=== PATIENT | male | born 1935 | race Caucasian/White ===

== ENCOUNTER 2023-11-21 11:44 | Emergency (ER) | payer OTHER, SELFPAY ==
[2023-11-21] VITALS (17 sets, daily range): BP systolic 88–141; BP diastolic 50–76; PULSE 66–90; RESP 16–24; TEMP 36.4; O2SAT 93–100; BMI 36.0
--- NOTE | 2023-11-21 12:03 | DI.RAD.S_ITS ---
PROCEDURE: XR CHEST 1V INDICATIONS: altered mental status TECHNIQUE: One view of the chest was acquired. COMPARISON: None. FINDINGS: Surgical changes and devices: None. Lungs and pleura: Lungs are clear. No pleural effusions or pneumothorax. Mediastinum: Mediastinal contours appear normal. Heart size is normal. Bones and chest wall: No suspicious bony lesions. Overlying soft tissues appear unremarkable. Old healed right clavicular fracture deformity. IMPRESSION: No acute cardiopulmonary abnormality is seen. Approved by: Ye Harrell M.D. on 11/21/2023 at 13:29
--- NOTE | 2023-11-21 12:10 | ED.GENADULT ---
HPI - General Adult General Chief complaint: Fall Stated complaint: Fall,AMS Time Seen by Provider: 11/21/23 11:54 Source: patient and EMS Mode of arrival: EMS Limitations: altered mental status History of Present Illness HPI narrative: Patient is an 88-year-old male. He is confused. Is unable to provide any HPI. Arrived by EMS. He was unsure as to who called EMS. He was unsure as to what happened to him today. He was abrasions on his forehead. He reports no pain. He knows that he was in the hospital and his date but is unable to provide any other HPI. Related Data Allergies Allergy/AdvReac Type Severity Reaction Status Date / Time No Known Drug Allergies Allergy Unverified 10/28/22 09:16 Review of Systems Review of Systems ROS Unobtainable: Unobtainable due to mental condition Patient History Social History Smoking Status: Unknown if ever smoked Smoking Status: Unknown if ever smoked Exam Initial Vital Signs Initial Vital Signs: Vital Signs Pulse Rate 87 11/21/23 11:51 Respiratory Rate 16 11/21/23 11:51 Pulse Oximetry 94 11/21/23 11:51 Const General: comfortable and No ill appearing HENMT Head: abrasion and contusion Chest Chest: No crepitus and No tenderness Resp Effort & Inspection: normal respiratory effort Auscultation: clear to auscultation bilaterally Cardio Rate: regular rate Rhythm: regular rhythm GI Inspection: normal to inspection Skin Other: Superficial abrasions to forehead Neuro General: patient alert, patient awake and moves all extremities Speech: speech normal Extrem Other: No gross deformities. Pelvis is stable. It went move all 4 extremities equally. Course Orders Ordered: ED Orders 11/21/23 11:30 CK [Creatine Kinase] Stat Complete Blood Count AUTO DIFF Stat Comprehensive Metabolic Panel Stat Ethanol (ETOH) Stat Prolactin Stat 11/21/23 12:00 Ammonia (NH3) Stat Urinalysis and Microscopic Stat Urine Culture Stat Urine Drug Screen, Rapid Stat 11/21/23 12:03 XR chest 1V Stat EKG-12 Lead Stat 11/21/23 12:09 CT cervical spine wo con Stat CT head/brain wo con Stat Discontinued Medications Bacitracin (Bacitracin Oint 0.9 Gm Pckt) 1 applic TOP NOW ONE Stop: 11/21/23 15:27 Last Admin: 11/21/23 15:33 Dose: 1 applic Documented By: SAVAGE Sodium Chloride (Normal Saline 0.9%) 1,000 mls @ 1,000 mls/hr IV BOLUS ONE Stop: 11/21/23 13:36 Last Infusion: 11/21/23 13:46 Dose: Infused Documented By: Admin: 11/21/23 12:49 Dose: 1,000 mls/hr Documented By: SAVAGE Vital Signs Vital signs: Vital Signs - 8 hr 11/21/23 11:51 11/21/23 11:52 11/21/23 11:52 Temperature Pulse Rate 87 90 Respiratory Rate 16 21 Blood Pressure 96/51 L Pulse Oximetry 94 95 Oxygen Delivery Method 11/21/23 12:00 11/21/23 12:00 11/21/23 12:03 Temperature 97.6 F Pulse Rate 83 87 Respiratory Rate 24 16 Blood Pressure 88/53 L 106/59 L Pulse Oximetry 93 95 Oxygen Delivery Method Room Air 11/21/23 12:03 11/21/23 12:03 11/21/23 12:15 Temperature Pulse Rate 85 83 Respiratory Rate 19 16 Blood Pressure 98/50 L Pulse Oximetry 95 95 Oxygen Delivery Method 11/21/23 12:15 11/21/23 12:46 11/21/23 12:50 Temperature Pulse Rate 77 76 Respiratory Rate 18 Blood Pressure 98/53 L Pulse Oximetry 96 Oxygen Delivery Method 11/21/23 12:50 11/21/23 13:00 11/21/23 13:00 Temperature Pulse Rate 75 Respiratory Rate 20 Blood Pressure 118/56 L 115/57 L Pulse Oximetry 98 Oxygen Delivery Method 11/21/23 13:15 11/21/23 13:15 11/21/23 13:30 Temperature Pulse Rate 69 70 Respiratory Rate 18 19 Blood Pressure 117/62 Pulse Oximetry 96 98 Oxygen Delivery Method 11/21/23 13:30 11/21/23 13:45 11/21/23 13:45 Temperature Pulse Rate 67 Respiratory Rate 18 Blood Pressure 118/61 121/63 Pulse Oximetry 98 Oxygen Delivery Method 11/21/23 14:00 11/21/23 14:00 11/21/23 14:15 Temperature Pulse Rate 66 Respiratory Rate 18 Blood Pressure 123/65 127/63 Pulse Oximetry 98 Oxygen Delivery Method 11/21/23 14:15 11/21/23 14:30 11/21/23 14:30 Temperature Pulse Rate 66 70 Respiratory Rate 17 17 Blood Pressure 131/64 Pulse Oximetry 98 99 Oxygen Delivery Method 11/21/23 14:48 11/21/23 14:48 11/21/23 15:00 Temperature Pulse Rate 79 70 Respiratory Rate Blood Pressure 141/76 H Pulse Oximetry 99 100 Oxygen Delivery Method 11/21/23 15:00 11/21/23 15:15 11/21/23 15:15 Temperature Pulse Rate 67 Respiratory Rate Blood Pressure 139/67 133/69 Pulse Oximetry 99 Oxygen Delivery Method Medical Decision Making Lab Data Lab results reviewed: Yes I reviewed the patient's lab results. 11/21/23 11:30 11/21/23 11:30 Labs: Lab Results 11/21/23 11/21/23 11/21/23 Range/Units 11:30 12:00 12:00 WBC 9.8 (4.5-11.0) X10^3/uL RBC 3.35 L (4.5-5.9) X10^6/uL Hgb 10.5 L (13.5-17.5) g/dL Hct 32.1 L (41-53) % MCV 95.9 (80-100) fL MCH 31.4 (26-34) PG MCHC 32.8 (30-36) % RDW 14.3 (11.6-14.8) % Plt Count 252 (150-400) X10^3/uL Neut % (Auto) 75.3 H (50-75) % Lymph % (Auto) 15.5 L (25-40) % [place] % (Auto) 8.2 (3-14) % Eos % (Auto) 0.6 L (2-4) % Baso % (Auto) 0.4 (0-2) % Neut # (Auto) 7400 H (3753-2989) /uL Lymph # (Auto) 1500 (5166-2383) /uL [place] # (Auto) 800 (0-900) /uL Eos # (Auto) 100 (0-450) /uL Baso # (Auto) 0 (0-100) /uL Sodium 143 (137-145) mmol/L Potassium 3.8 (3.4-5.1) mmol/L Chloride 108 H (98-107) mmol/L Carbon Dioxide 15 L (22-32) mmol/L BUN 41 H (9-20) mg/dL Creatinine 2.02 H (0.66-1.25) mg/dL Estimated GFR 32 L (>60) mL/min BUN/Creatinine Ratio 20.3 (6-22) Glucose 203 H (80-110) mg/dL Calcium 9.3 (8.4-10.2) mg/dL Total Bilirubin 0.4 (0.2-1.3) mg/dL AST 32 (17-59) IU/L ALT 27 (<50) IU/L Alkaline Phosphatase 35 L (38-126) U/L Ammonia < 9 L (9-30) umol/L Total Creatine Kinase 194 H (55-170) U/L Total Protein 7.0 (6.3-8.2) g/dL Albumin 4.3 (3.5-5.0) g/dL Globulin 2.7 (1.7-4.1) g/dL Albumin/Globulin Ratio 1.6 (1.0-2.8) Prolactin 41.9 H (3.7-17.9) ng/mL Urine Color Yellow Urine Appearance Slightly cloudy Urine pH 5.5 (4.5-8.0) Ur Specific [place] >=1.030 H (1.000-1.035) Urine Protein Negative (Negative) Urine Glucose (UA) Negative (Negative) g/dL Urine Ketones Negative (NEGATIVE) Urine Occult Blood Negative (Negative) Urine Nitrate Negative (Negative) Urine Bilirubin Negative (NEGATIVE) Urine Urobilinogen 0.2 (0.2) E.U./dL Ur Leukocyte Esterase 2+ H (NEGATIVE) Urine RBC Cancelled None seen Urine WBC Cancelled Ur Squamous Epith Cells Ur Transition Epith Cell Ur Renal Epithelial Cell Calcium Oxalate Crystal Uric Acid Crystals Triple Phos Crystals Other Crystals Amorphous Sediment Urine Bacteria Hyaline Casts Granular Casts RBC Casts WBC Casts Other Casts Urine Mucus Urine Trichomonas Urine Yeast Urine Sperm Ur Culture Indicated? Micro UA Comment Vol Urine Centrifuged U Opiates 300ng/mL cut (Negative) Ur Oxycodone Screen (Negative) Urine Methadone Screen (Negative) Ur Barbiturates Screen (Negative) U Tricyclic Antidepress (Negative) Ur Phencyclidine Scrn (Negative) Ur Amphetamines Screen (Negative) U Methamphetamines Scrn (Negative) Ur MDMA Scrn (Ecstasy) (Negative) U Benzodiazepines Scrn (Negative) Urine Cocaine Screen (Negative) U Marijuana (THC) Screen (Negative) Urine Specific [place] (Normal) Ethyl Alcohol < 10 ( - 10) mg/dL Ur Creatinine (Normal) 11/21/23 11/21/23 11/21/23 Range/Units 12:00 12:00 12:00 WBC (4.5-11.0) X10^3/uL RBC (4.5-5.9) X10^6/uL Hgb (13.5-17.5) g/dL Hct (41-53) % MCV (80-100) fL MCH (26-34) PG MCHC (30-36) % RDW (11.6-14.8) % Plt Count (150-400) X10^3/uL Neut % (Auto) (50-75) % Lymph % (Auto) (25-40) % [place] % (Auto) (3-14) % Eos % (Auto) (2-4) % Baso % (Auto) (0-2) % Neut # (Auto) (8208-1313) /uL Lymph # (Auto) (3037-3639) /uL [place] # (Auto) (0-900) /uL Eos # (Auto) (0-450) /uL Baso # (Auto) (0-100) /uL Sodium (137-145) mmol/L Potassium (3.4-5.1) mmol/L Chloride (98-107) mmol/L Carbon Dioxide (22-32) mmol/L BUN (9-20) mg/dL Creatinine (0.66-1.25) mg/dL Estimated GFR (>60) mL/min BUN/Creatinine Ratio (6-22) Glucose (80-110) mg/dL Calcium (8.4-10.2) mg/dL Total Bilirubin (0.2-1.3) mg/dL AST (17-59) IU/L ALT (<50) IU/L Alkaline Phosphatase (38-126) U/L Ammonia (9-30) umol/L Total Creatine Kinase (55-170) U/L Total Protein (6.3-8.2) g/dL Albumin (3.5-5.0) g/dL Globulin (1.7-4.1) g/dL Albumin/Globulin Ratio (1.0-2.8) Prolactin (3.7-17.9) ng/mL Urine Color Urine Appearance Urine pH (4.5-8.0) Ur Specific [place] (1.000-1.035) Urine Protein (Negative) Urine Glucose (UA) (Negative) g/dL Urine Ketones (NEGATIVE) Urine Occult Blood (Negative) Urine Nitrate (Negative) Urine Bilirubin (NEGATIVE) Urine Urobilinogen (0.2) E.U./dL Ur Leukocyte Esterase (NEGATIVE) Urine RBC Urine WBC 10-30/hpf H Ur Squamous Epith Cells Cancelled None seen Ur Transition Epith Cell Cancelled Ur Renal Epithelial Cell Cancelled Calcium Oxalate Crystal Cancelled Uric Acid Crystals Cancelled Triple Phos Crystals Cancelled Other Crystals Cancelled Amorphous Sediment Cancelled Urine Bacteria Cancelled Many (>30) H Hyaline Casts Cancelled Granular Casts Cancelled RBC Casts Cancelled WBC Casts Cancelled Other Casts Cancelled Urine Mucus Cancelled Urine Trichomonas Cancelled Urine Yeast Cancelled Urine Sperm Cancelled Ur Culture Indicated? Cancelled Micro UA Comment Vol Urine Centrifuged U Opiates 300ng/mL cut (Negative) Ur Oxycodone Screen (Negative) Urine Methadone Screen (Negative) Ur Barbiturates Screen (Negative) U Tricyclic Antidepress (Negative) Ur Phencyclidine Scrn (Negative) Ur Amphetamines Screen (Negative) U Methamphetamines Scrn (Negative) Ur MDMA Scrn (Ecstasy) (Negative) U Benzodiazepines Scrn (Negative) Urine Cocaine Screen (Negative) U Marijuana (THC) Screen (Negative) Urine Specific [place] (Normal) Ethyl Alcohol ( - 10) mg/dL Ur Creatinine (Normal) 11/21/23 11/21/23 Range/Units 12:00 12:00 WBC (4.5-11.0) X10^3/uL RBC (4.5-5.9) X10^6/uL Hgb (13.5-17.5) g/dL Hct (41-53) % MCV (80-100) fL MCH (26-34) PG MCHC (30-36) % RDW (11.6-14.8) % Plt Count (150-400) X10^3/uL Neut % (Auto) (50-75) % Lymph % (Auto) (25-40) % [place] % (Auto) (3-14) % Eos % (Auto) (2-4) % Baso % (Auto) (0-2) % Neut # (Auto) (2597-2384) /uL Lymph # (Auto) (0586-1684) /uL [place] # (Auto) (0-900) /uL Eos # (Auto) (0-450) /uL Baso # (Auto) (0-100) /uL Sodium (137-145) mmol/L Potassium (3.4-5.1) mmol/L Chloride (98-107) mmol/L Carbon Dioxide (22-32) mmol/L BUN (9-20) mg/dL Creatinine (0.66-1.25) mg/dL Estimated GFR (>60) mL/min BUN/Creatinine Ratio (6-22) Glucose (80-110) mg/dL Calcium (8.4-10.2) mg/dL Total Bilirubin (0.2-1.3) mg/dL AST (17-59) IU/L ALT (<50) IU/L Alkaline Phosphatase (38-126) U/L Ammonia (9-30) umol/L Total Creatine Kinase (55-170) U/L Total Protein (6.3-8.2) g/dL Albumin (3.5-5.0) g/dL Globulin (1.7-4.1) g/dL Albumin/Globulin Ratio (1.0-2.8) Prolactin (3.7-17.9) ng/mL Urine Color Urine Appearance Urine pH Normal (4.5-8.0) Ur Specific [place] (1.000-1.035) Urine Protein (Negative) Urine Glucose (UA) (Negative) g/dL Urine Ketones (NEGATIVE) Urine Occult Blood (Negative) Urine Nitrate (Negative) Urine Bilirubin (NEGATIVE) Urine Urobilinogen (0.2) E.U./dL Ur Leukocyte Esterase (NEGATIVE) Urine RBC Urine WBC Ur Squamous Epith Cells Ur Transition Epith Cell Ur Renal Epithelial Cell Calcium Oxalate Crystal Uric Acid Crystals Triple Phos Crystals Other Crystals Amorphous Sediment Urine Bacteria Hyaline Casts Granular Casts RBC Casts WBC Casts Other Casts Urine Mucus Urine Trichomonas Urine Yeast Urine Sperm Ur Culture Indicated? Specimen cultured Micro UA Comment Cancelled Vol Urine Centrifuged Cancelled 10ml (spun) U Opiates 300ng/mL cut Negative (Negative) Ur Oxycodone Screen Negative (Negative) Urine Methadone Screen Negative (Negative) Ur Barbiturates Screen Negative (Negative) U Tricyclic Antidepress Negative (Negative) Ur Phencyclidine Scrn Negative (Negative) Ur Amphetamines Screen Negative (Negative) U Methamphetamines Scrn Negative (Negative) Ur MDMA Scrn (Ecstasy) Negative (Negative) U Benzodiazepines Scrn Negative (Negative) Urine Cocaine Screen Negative (Negative) U Marijuana (THC) Screen Negative (Negative) Urine Specific [place] Normal (Normal) Ethyl Alcohol ( - 10) mg/dL Ur Creatinine Normal (Normal) Point of Care Testing Glucose POC 198 Point of care testing: Point of Care Testing Glucose POC 198 Imaging Data Chest x-ray: Radiologist's Impression: PROCEDURE: XR CHEST 1V INDICATIONS: altered mental status TECHNIQUE: One view of the chest was acquired. COMPARISON: None. FINDINGS: Surgical changes and devices: None. Lungs and pleura: Lungs are clear. No pleural effusions or pneumothorax. Mediastinum: Mediastinal contours appear normal. Heart size is normal. Bones and chest wall: No suspicious bony lesions. Overlying soft tissues appear unremarkable. Old healed right clavicular fracture deformity. IMPRESSION: No acute cardiopulmonary abnormality is seen. CT - cervical spine: Radiologist's Impression: PROCEDURE: CT CERVICAL SPINE WO CON INDICATIONS: fall AMS TECHNIQUE: Noncontrast 3 mm thick sections acquired from the skull base to the T4 level. Sagittal and coronal reformats were then constructed. For radiation dose reduction, the following was used: automated exposure control, adjustment of mA and/or kV according to patient size. COMPARISON: None. FINDINGS: Image quality: Excellent. Bones: No fractures or dislocations. Visualized superior ribs are intact. Old healed right clavicular fracture deformity. Chronic osseous fusion across the C2-3 disc space and partial osseous fusion of C1 and C2. Multilevel disc space narrowing and degenerative endplate changes. Multilevel uncovertebral joint and facet hypertrophy. Soft tissues: Prevertebral soft tissues are normal in thickness. No paravertebral hematomas. No apical pneumothoraces. IMPRESSION: No acute displaced fracture or traumatic subluxation. CT scan - head: Radiologist's Impression: ROCEDURE: CT HEAD/BRAIN WO CON INDICATIONS: AMS TECHNIQUE: Noncontrast 4.5 mm thick angled axial sections acquired from the foramen magnum to the vertex, with coronal and sagittal reformats. For radiation dose reduction, the following was used: automated exposure control, adjustment of mA and/or kV according to patient size. COMPARISON: None. FINDINGS: Image quality: Diagnostic. CSF spaces: Basal cisterns are patent. No extra-axial fluid collections. The ventricles are symmetric in size and shape. Brain: No acute intracranial hemorrhage or mass effect. There is cerebral volume loss for age, with resultant ventricular and sulcal prominence. There are periventricular and deep white matter chronic small vessel ischemic changes. There is intracranial internal carotid artery atherosclerosis. Skull and face: Mild focal midline frontal scalp edema. Calvarium and visualized facial bones appear intact, without suspicious lesions. Sinuses: Visualized sinuses and mastoids are clear. IMPRESSION: 1. No acute intracranial pathology. 2. Mild chronic microvascular ischemic changes and generalized parenchymal volume loss. ECG Data Attestation: I personally reviewed and interpreted this ECG as follows: Interpretation: Sinus rhythm Ventricular rate of 83 First-degree AV block LA interval 246 milliseconds Normal axis Normal QRS Normal QTC No ST T wave changes MDM Narrative Medical decision making narrative: Patient's son-in-law did arrive to the emergency department and stated that the patient is at his baseline neurologic status. He was abrasions to his forehead which require no specific intervention other than cleaning and topical antibiotic ointment. His workup here in the ER is unremarkable. He was never had a history of seizures. Patient's son-in-law states that the patient does have some good days and bad days where he was more confused than others but he feels like how he was acting today and responding to questioning is at his baseline. The patient does live with his son-in-law and daughter. He was able to stand and ambulate at bedside. Since he was at his baseline will discharge home with return precautions. Patient's son-in-law expressed understanding and agreement. Discharge Plan Departure Patient Disposition: Home Clinical Impression: Abrasion of skin of face, Fall Instructions: How to Prevent Falls, DI for Abrasion Activity Restrictions/Additional Instructions: Angel can continue to take all of his medications as directed. He can shower like normal. You can put topical antibiotic ointment over the areas of abrasion on the forehead. Contact his primary doctor for follow-up. Return to the emergency department for new symptoms. Referrals: Miscellaneous,[facility] [Primary Care Provider] - Stand Alone Forms: Patient Portal/API
--- NOTE | 2023-11-21 12:12 | EKG_ITS ---
[address] [address] Test Date: 2023-11-21 Pat Name: Angel Marie Department: 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
[2023-11-21 12:15] LABS: Add Manual Diff / Slide Review NO; Basophils Absolute Auto 0 /uL (0-100); Basophils Percent Auto 0.4 % (0-2); Eosinophils Absolute Auto 100 /uL (0-450); Eosinophils Percent Auto 0.6 % (2-4); Hematocrit 32.1 % (41-53); Hemoglobin 10.5 g/dL (13.5-17.5); Lymphocytes Absolute Auto 1500 /uL (1100-4500); Lymphocytes Percent Auto 15.5 % (25-40); Mean Corpuscular HGB Conc 32.8 % (30-36); Mean Corpuscular Hemoglobin 31.4 PG (26-34); Mean Corpuscular Volume 95.9 fL (80-100); Monocytes Absolute Auto 800 /uL (0-900); Monocytes Percent Auto 8.2 % (3-14); Neutrophils Absolute Auto 7400 /uL (1500-7000); Neutrophils Percent Auto 75.3 % (50-75); Platelet Count 252 X10^3/uL (150-400); Red Blood Cell Count 3.35 X10^6/uL (4.5-5.9); Red Cell Distribution Width 14.3 % (11.6-14.8); White Blood Cell Count 9.8 X10^3/uL (4.5-11.0)
[2023-11-21 12:18] LABS: Ur Creatinine Normal (Normal); Ur Specific Gravity Normal (Normal); Urine Tetrahydrocannabinol Negative (Negative); Urine pH Normal (Normal)
[2023-11-21 12:19] LABS: UR Morphine/Opiate cutoff 300 Negative (Negative); Urine Amphetamines Negative (Negative); Urine Barbiturates Negative (Negative); Urine Benzodiazepines Negative (Negative); Urine Cocaine Negative (Negative); Urine MDMA Negative (Negative); Urine Methadone Negative (Negative); Urine Methamphetamines Negative (Negative); Urine Oxycodone Negative (Negative); Urine Phencyclidine Negative (Negative); Urine Tricyclic Antidepressant Negative (Negative)
[2023-11-21 12:23] LABS: Bilirubin Urine UA NEGATIVE (NEGATIVE); Color Urine UA YELLOW; Glucose Urine UA NEGATIVE (Negative); Ketones Urine UA NEGATIVE (NEGATIVE); Leukocyte Esterase Urine UA 2+ (NEGATIVE); Nitrite Urine UA NEGATIVE (Negative); Occult Blood Urine UA NEGATIVE (Negative); Protein Urine UA NEGATIVE (Negative); Specific Gravity Urine UA >=1.030 (1.000-1.035); Urobilinogen Urine UA 0.2 E.U./dL (0.2); pH Urine UA 5.5 (4.5-8.0)
[2023-11-21 12:28] LABS: Appearance Urine UA Slightly Cloudy; RBC Urine None Seen (0-5/HPF); Urine Volume 10mL (spun); WBC Urine 10-30/HPF (0-5/HPF)
[2023-11-21 12:29] LABS: Bacteria Urine Many (>30); Culture Indicated Urine Specimen Cultured; Squamous Epithelial Cell Urine None Seen (0-5/HPF)
[2023-11-21 12:33] LABS: Albumin 4.3 g/dL (3.5-5.0); Albumin Globulin Ratio 1.6 (1.0-2.8); Alkaline Phosphatase 35 U/L (38-126); Aspartate Aminotransferase 32 IU/L (17-59); BUN Creatinine Ratio 20.3 (6-22); Bilirubin Total 0.4 mg/dL (0.2-1.3); Blood Urea Nitrogen 41 mg/dL (9-20); Calcium 9.3 mg/dL (8.4-10.2); Carbon Dioxide 15 mmol/L (22-32); Chloride 108 mmol/L (98-107); Estimated Glomerular Filt Rate 32 mL/min (>60); Globulin 2.7 g/dL (1.7-4.1); Glucose 203 mg/dL (80-110); HEMOLYSIS < 15 (0-50); Potassium 3.8 mmol/L (3.4-5.1); Sodium 143 mmol/L (137-145)
[2023-11-21 12:34] LABS: Ethanol (ETOH) < 10 mg/dL
--- NOTE | 2023-11-21 12:35 | PC.NURSE ---
Pt unable to tell me children's name or information. Attempted to call number listed in chart; no answer. Attempted to contact pt's insurance company through [employer] who was unable to help w/ emergency contact information.
[2023-11-21 12:39] LABS: Alanine Aminotransferase 27 IU/L (<50)
[2023-11-21 12:45] LABS: Ammonia (NH3) < 9 umol/L (9-30)
[2023-11-21 12:47] LABS: Creatine Kinase 194 U/L (55-170)
[2023-11-21] MEDS: SODIUM CHLORIDE 0.9% 1,000 ML 1000 ML IV (12:49)
[2023-11-21 13:04] LABS: Prolactin 41.9 ng/mL (3.7-17.9)
--- NOTE | 2023-11-21 14:49 | PC.NURSE ---
Ambulated to bathroom and used toilet without difficulty.
[2023-11-21] MEDS: BACITRACIN OINT 0.9 GM PCKT 1 APPLIC TOP (15:33)
== END 2023-11-21 15:45 | disposition home or self-care (01) ==
PROVIDERS: Emergency Provider Emergency Medicine
DX: S00.81XA Abrasion of other part of head, initial encounter (principal); I44.0 Atrioventricular block, first degree; R41.82 Altered mental status, unspecified; W19.XXXA Unspecified fall, initial encounter
CPT/HCPCS: 36415; 70450; 71045; 72125; 80053; 80305; 80320; 81001; 82140; 82550; 82962; 84146; 85025; 87077; 87086; 87186; 93005; 96360; 99284; 99285

== ENCOUNTER 2024-06-30 15:02 | Emergency (ER) | payer OTHER, SELFPAY ==
[2024-06-30] VITALS (8 sets, daily range): BP systolic 108–149; BP diastolic 57–75; PULSE 60–67; RESP 14–18; TEMP 36.4–36.8; O2SAT 97–99; BMI 33.9
--- NOTE | 2024-06-30 15:41 | DI.RAD.S_ITS ---
PROCEDURE: XR CHEST 1V INDICATIONS: altered mental status TECHNIQUE: One view of the chest was acquired. COMPARISON: [facility], CR, XR CHEST 1V, 11/21/2023, 12:34. FINDINGS: Surgical changes and devices: None. Lungs and pleura: Lungs are clear. No pleural effusions or pneumothorax. Mediastinum: Mediastinal contours appear normal. Heart size is normal. Bones and chest wall: No suspicious bony lesions. Overlying soft tissues appear unremarkable. IMPRESSION: No acute cardiopulmonary abnormality is seen. Dictated by: Kenrick Mejia M.D. on 06/30/2024 at 16:29 Approved by: Kenrick Mejia M.D. on 06/30/2024 at 16:29
--- NOTE | 2024-06-30 15:41 | EKG_ITS ---
[place] [id number] [place] [id number] Test Date: 2024-06-30 Pat Name: Angel Marie Department: [facility] Room: Gender: Male Combat Engineer: PHILLIP : 1935 Requested By: Order Number: [id number] Reading MD: Eyad Sorenson MD Measurements Intervals [place] Rate: 62 P: 54 TX: 210 QRS: 13 QRSD: 102 T: 58 QT: 414 QTc: 420 Interpretive Statements Sinus rhythm with 1st degree AV block Electronically Signed On 07-01-2024 12:21:42 PST by Eyad Sorenson MD
[2024-06-30 16:03] LABS: Ur Creatinine Normal (Normal); Ur Specific Gravity Normal (Normal); Urine Amphetamines Negative (Negative); Urine Barbiturates Negative (Negative); Urine Benzodiazepines Negative (Negative); Urine Cocaine Negative (Negative); Urine MDMA Negative (Negative); Urine Methadone Negative (Negative); Urine Methamphetamines Negative (Negative); Urine Opiates Negative (Negative); Urine Phencyclidine Negative (Negative); Urine THC Negative (Negative); Urine Tricyclic Antidepressant Negative (Negative); Urine pH Normal (Normal)
[2024-06-30 16:04] LABS: Urine Oxycodone Negative (Negative)
[2024-06-30 16:10] LABS: Add Manual Diff / Slide Review NO; Basophils Absolute Auto 0 /uL (0-100); Basophils Percent Auto 0.3 % (0-2); Eosinophils Absolute Auto 200 /uL (0-450); Eosinophils Percent Auto 2.3 % (2-4); Hematocrit 33.5 % (41-53); Hemoglobin 11.1 g/dL (13.5-17.5); Lymphocytes Absolute Auto 2200 /uL (1100-4500); Lymphocytes Percent Auto 29.3 % (25-40); Mean Corpuscular HGB Conc 33.2 % (30-36); Mean Corpuscular Hemoglobin 31.6 PG (26-34); Mean Corpuscular Volume 95.3 fL (80-100); Monocytes Absolute Auto 800 /uL (0-900); Neutrophils Absolute Auto 4300 /uL (1500-7000); Neutrophils Percent Auto 57.1 % (50-75); Platelet Count 239 X10^3/uL (150-400); Red Blood Cell Count 3.52 X10^6/uL (4.5-5.9); Red Cell Distribution Width 13.6 % (11.6-14.8); White Blood Cell Count 7.6 X10^3/uL (4.5-11.0)
[2024-06-30 16:39] LABS: Alanine Aminotransferase 21 IU/L (<50); Albumin 4.5 g/dL (3.5-5.0); Albumin Globulin Ratio 1.7 (1.0-2.8); Alkaline Phosphatase 32 U/L (38-126); Aspartate Aminotransferase 65 IU/L (17-59); BUN Creatinine Ratio 23.2 (6-22); Bilirubin Total 0.3 mg/dL (0.2-1.3); Blood Urea Nitrogen 44 mg/dL (9-20); Calcium 9.4 mg/dL (8.4-10.2); Carbon Dioxide 23 mmol/L (22-32); Chloride 104 mmol/L (98-107); Estimated Glomerular Filt Rate 34 mL/min (>60); Globulin 2.6 g/dL (1.7-4.1); Glucose 52 mg/dL (80-110); HEMOLYSIS 20 (0-50); Potassium 4.6 mmol/L (3.4-5.1); Sodium 137 mmol/L (137-145); Total Protein 7.1 g/dL (6.3-8.2)
[2024-06-30 16:40] LABS: Ammonia (NH3) 12 umol/L (9-30)
--- NOTE | 2024-06-30 20:24 | PC.NURSE ---
pt given peanut butter and crackers and apple juice
--- NOTE | 2024-06-30 21:41 | PC.NURSE ---
Patient in room alone and no family at bedside. The patient is alert to self but does not know his age, location, month, or situation.
--- NOTE | 2024-06-30 21:42 | PC.NURSE ---
The patient denies pain and does not react when palpating his abd. His pupils PERRLA. He does not appear to be in distress at this time. His lung sounds are clear. He denies cough, , or GI issues.
--- NOTE | 2024-06-30 23:03 | ED.GENADULT ---
HPI - General Adult General Chief complaint: Altered Mental Status Stated complaint: confused, AMS Time Seen by Provider: 06/30/24 22:04 Source: patient Mode of arrival: Ambulatory History of Present Illness HPI narrative: 89-year-old male with history of diabetes diagnosed about 15 years ago, noted to be confused by son-in-law caregiver at their home to the day today, this has happened in the past with urinary tract infections, they brought in for evaluation, found to have low blood sugar 52, given oral feeds, improved status here. No recent fevers. No nausea or vomiting. No abdominal pain. No chest pain or shortness of breath. No recent fall injury trauma or new activities. He seemed to be doing well in his current situation, no requests for fdc placement or other social assistance for now. No recent changes in medication or oral intake. He takes metformin 1000 mg tablets, 2 tablets each morning. Related Data Home Medications Medication Instructions Recorded Confirmed aspirin 81 mg tablet,delayed 81 mg PO DAILY 06/30/24 06/30/24 release atorvastatin 40 mg tablet 40 mg PO DAILY 06/30/24 06/30/24 fenofibrate nanocrystallized 145 145 mg PO DAILY 06/30/24 06/30/24 mg tablet furosemide 20 mg tablet 20 mg PO DAILY 06/30/24 06/30/24 glipizide 10 mg tablet 10 mg PO DAILY 06/30/24 06/30/24 levothyroxine 100 mcg tablet 100 mcg PO DAILY disorder of 06/30/24 06/30/24 thyroid gland lisinopril 10 mg tablet 10 mg PO DAILY blood pressure 06/30/24 06/30/24 metformin 1,000 mg tablet mg 06/30/24 sitagliptin phosphate 100 mg 100 mg PO DAILY 06/30/24 06/30/24 tablet (Januvia) Allergies Allergy/AdvReac Type Severity Reaction Status Date / Time No Known Drug Allergies Allergy Verified 06/30/24 15:38 Patient History Social History Smoking Status: Never smoker Smoking Status: Never smoker Exam Narrative Exam Narrative: GENERAL: Well-developed patient, in mild distress. HEAD: Atraumatic. Normocephalic. EYES: Pupils equal round and reactive. Extraocular motions intact. No scleral icterus. No injection or drainage. ENT: Nose without bleeding, purulent drainage. Throat without erythema, tonsillar hypertrophy or exudate. Airway patent. NECK: Trachea midline. Non tender CARDIOVASCULAR: Regular rate and rhythm without murmurs, gallops, or rubs. RESPIRATORY: Clear to auscultation. Breath sounds equal bilaterally. No wheezes, rales, or rhonchi. GASTROINTESTINAL: Abdomen soft, non-tender, nondistended. EXTREMITIES: No edema or joint tenderness. BACK: Nontender without deformity or crepitance. No flank tenderness. NEURO: AOx3. Motor functions grossly nonfocal. SKIN: No rash or erythema of visible areas Initial Vital Signs Initial Vital Signs: Vital Signs Temperature 98.3 F 06/30/24 15:34 Pulse Rate 61 06/30/24 15:34 Respiratory Rate 17 06/30/24 15:34 Blood Pressure 108/59 L 06/30/24 15:34 Pulse Oximetry 99 06/30/24 15:34 Oxygen Delivery Method Room Air 06/30/24 15:34 Course Orders Ordered: ED Orders 06/30/24 15:41 XR chest 1V Stat EKG-12 Lead Stat 06/30/24 15:50 Urine Drug Screen, Rapid Stat 06/30/24 15:55 Ammonia (NH3) Stat Complete Blood Count AUTO DIFF Stat Comprehensive Metabolic Panel Stat Vital Signs Vital signs: Vital Signs - 8 hr 06/30/24 15:34 06/30/24 17:40 06/30/24 21:07 Temperature 98.3 F Pulse Rate 61 60 63 Respiratory Rate 17 18 Blood Pressure 108/59 L 119/65 Pulse Oximetry 99 98 98 Oxygen Delivery Method Room Air Room Air 06/30/24 21:09 06/30/24 21:30 06/30/24 21:40 Temperature 97.5 F L Pulse Rate 62 60 60 Respiratory Rate 17 18 Blood Pressure 143/63 H Pulse Oximetry 99 97 98 Oxygen Delivery Method Room Air 06/30/24 21:40 06/30/24 22:00 06/30/24 22:00 Temperature Pulse Rate 60 Respiratory Rate 14 Blood Pressure 127/60 112/57 L Pulse Oximetry 98 Oxygen Delivery Method Medical Decision Making Lab Data Lab results reviewed: Yes I reviewed the patient's lab results. Lab results narrative: White blood cell count 7600, hemoglobin 11.1, platelets adequate. Sodium 137, potassium 4.6, chloride 104, serum CO2 23, BUN 44 with creatinine 1.9, glucose 52 low. Liver functions normal. UDS negative. Urine dip negative. 06/30/24 15:55 06/30/24 15:55 Labs: Lab Results 06/30/24 06/30/24 Range/Units 15:50 15:55 WBC 7.6 (4.5-11.0) X10^3/uL RBC 3.52 L (4.5-5.9) X10^6/uL Hgb 11.1 L (13.5-17.5) g/dL Hct 33.5 L (41-53) % MCV 95.3 (80-100) fL MCH 31.6 (26-34) PG MCHC 33.2 (30-36) % RDW 13.6 (11.6-14.8) % Plt Count 239 (150-400) X10^3/uL Neut % (Auto) 57.1 (50-75) % Lymph % (Auto) 29.3 (25-40) % [place] % (Auto) 11.0 (3-14) % Eos % (Auto) 2.3 (2-4) % Baso % (Auto) 0.3 (0-2) % Neut # (Auto) 4300 (5917-3667) /uL Lymph # (Auto) 2200 (4173-0179) /uL [place] # (Auto) 800 (0-900) /uL Eos # (Auto) 200 (0-450) /uL Baso # (Auto) 0 (0-100) /uL Sodium 137 (137-145) mmol/L Potassium 4.6 (3.4-5.1) mmol/L Chloride 104 (98-107) mmol/L Carbon Dioxide 23 (22-32) mmol/L BUN 44 H (9-20) mg/dL Creatinine 1.90 H (0.66-1.25) mg/dL Estimated GFR 34 L (>60) mL/min BUN/Creatinine Ratio 23.2 H (6-22) Glucose 52 L (80-110) mg/dL Calcium 9.4 (8.4-10.2) mg/dL Total Bilirubin 0.3 (0.2-1.3) mg/dL AST 65 H (17-59) IU/L ALT 21 (<50) IU/L Alkaline Phosphatase 32 L (38-126) U/L Ammonia 12 (9-30) umol/L Total Protein 7.1 (6.3-8.2) g/dL Albumin 4.5 (3.5-5.0) g/dL Globulin 2.6 (1.7-4.1) g/dL Albumin/Globulin Ratio 1.7 (1.0-2.8) U Opiates 300ng/mL cut Negative (Negative) Ur Oxycodone Screen Negative (Negative) Urine Methadone Screen Negative (Negative) Ur Barbiturates Screen Negative (Negative) U Tricyclic Antidepress Negative (Negative) Ur Phencyclidine Scrn Negative (Negative) Ur Amphetamines Screen Negative (Negative) U Methamphetamines Scrn Negative (Negative) Ur MDMA Scrn (Ecstasy) Negative (Negative) U Benzodiazepines Scrn Negative (Negative) Urine Cocaine Screen Negative (Negative) U Marijuana (THC) Screen Negative (Negative) Urine pH Normal (Normal) Urine Specific [place] Normal (Normal) Ur Creatinine Normal (Normal) Point of Care Testing Glucose POC 85 Urine Dip Bedside Urine Glucose Negative Bedside Urine Bilirubin - Negative Bedside Urine Ketone - Negative Urine Specific [place] 1.020 Bedside Urine Occult Blood - Negative Bedside Urine pH 6.0 Bedside Urine Protein - Negative Bedside Urine Urobilinogen - Negative Bedside Urine Nitrite - Negative Bedside Urine Leukocytes - Negative Esterase Point of care testing: Point of Care Testing Glucose POC 85 Urine Dip Bedside Urine Glucose Negative Bedside Urine Bilirubin - Negative Bedside Urine Ketone - Negative Urine Specific [place] 1.020 Bedside Urine Occult Blood - Negative Bedside Urine pH 6.0 Bedside Urine Protein - Negative Bedside Urine Urobilinogen - Negative Bedside Urine Nitrite - Negative Bedside Urine Leukocytes - Negative Esterase Imaging Data Chest x-ray: Radiologist's Impression: [address] [address] XRay Report Signed Patient: Angel Marie MR#: [id number] : 1935 Acct:[id number] Age/Sex: 89 / M Date of Service: 06/30/24 Loc: ED Accession Number: [id number] Procedure: XR chest 1V Ordering Provider: Jeremiah Myers MD PROCEDURE: XR CHEST 1V INDICATIONS: altered mental status TECHNIQUE: One view of the chest was acquired. COMPARISON: [facility], , XR CHEST 1V, 11/21/2023, 12:34. FINDINGS: Surgical changes and devices: None. Lungs and pleura: Lungs are clear. No pleural effusions or pneumothorax. Mediastinum: Mediastinal contours appear normal. Heart size is normal. Bones and chest wall: No suspicious bony lesions. Overlying soft tissues appear unremarkable. IMPRESSION: No acute cardiopulmonary abnormality is seen. Dictated by: Kenrick Mejia M.D. on 06/30/2024 at 16:29 Approved by: Kenrick Mejia M.D. on 06/30/2024 at 16:29 ECG Data Attestation: I personally reviewed and interpreted this ECG as follows: Interpretation: Normal sinus rhythm with first-degree AV block, ID 210. QRS 102, QTC 420. MDM Narrative Medical decision making narrative: 89-year-old male with history of diabetes, confusion today, family concerned he might have another urinary tract infection, urine dip negative, no fever, glucose 52 low, takes metformin 2000 mg daily, given oral feeds, glucose 80s much improved mental status. EKG, troponin, electrolytes unremarkable. Urine dip negative. Chest x-ray negative. Son-in-law at bedside feels like he is back at his baseline, would like to take patient home. Advised to hold metformin dose tonight and tomorrow morning. Recheck sugars through the morning tomorrow, consider half-strength metformin 1000 mg once daily instead of twice daily. Discharged home with family. Follow up advised with PCP on Wednesday, check sugars through the weekend advised. Discharge Plan Departure Patient Disposition: Home Clinical Impression: Hypoglycemia, Confusion, History of diabetes mellitus Activity Restrictions/Additional Instructions: Mr Marie, Confusion today, history of diabetes, history of urinary tract infection, urine tests not suspicious for infectious at this time, but low blood sugar 52 noted, given oral feeds, blood sugar increased 80s, mental status improved, likely due to low blood sugar. Metformin dose to 1000 mg daily. Please hold tonight's dose and tomorrow's dose. Recheck sugar in the morning. Consider restart your metformin only if sugar levels or elevated, and then perhaps at 1000 mg once daily instead of twice daily, or least 1000 mg daily dose instead of 2000 mg daily dose. Until follow up with your regular doctor on Wednesday. Call your doctor on Wednesday, to review blood sugar results. Check blood sugars before each meal. Return earlier to this/nearest emergency department for any change worsening symptoms or any concerns prior. Thank you for allowing our team to evaluate you today. Prescriptions: No Action atorvastatin 40 mg tablet 40 mg PO DAILY glipizide 10 mg tablet 10 mg PO DAILY aspirin [Aspir-81] 81 mg Tablet,Delayed Release (Dr/Ec) 81 mg PO DAILY levothyroxine 100 mcg tablet 100 mcg PO DAILY metformin 1,000 mg tablet Patient Comments: Take 2 tablets (2,000 mg) by mouth Daily. lisinopril 10 mg tablet 10 mg PO DAILY furosemide 20 mg tablet 20 mg PO DAILY fenofibrate nanocrystallized 145 mg tablet 145 mg PO DAILY Januvia 100 mg tablet 100 mg PO DAILY Referrals: Miscellaneous,Doctor, MD [Primary Care Provider] - Stand Alone Forms: Patient Portal/API/Survey
== END 2024-06-30 23:46 | disposition home or self-care (01) ==
PROVIDERS: Emergency Medicine; Emergency Provider Emergency Medicine
DX: E11.649 Type 2 diabetes mellitus with hypoglycemia without coma (principal); R41.0 Disorientation, unspecified; I44.0 Atrioventricular block, first degree
CPT/HCPCS: 36415; 71045; 80053; 80305; 81003; 82140; 82962; 85025; 93005; 93010; 99284